=== PATIENT | female | born 1955 | race Caucasian/White ===

== ENCOUNTER → 2021-02-15 | Outpatient (CLI) | payer BC, MEDICARE ==
--- NOTE | 2021-02-15 17:19 | RAD ---
EXAM: CT Head without IV contrast CLINICAL HISTORY: Reason: PT STATES SHE BLACKED OUT FOR 3 DAYS / Spl. Instructions: / History: COMPARISON: None. TECHNIQUE: Routine CT of the head without contrast. PQRS compliance statement - One or more of the following individualized dose reduction techniques wer e utilized for this study: 1. Automated exposure control 2. Adjustment of the mA and/or kV according to patient size 3. Use of iterative reconstruction technique FINDINGS: There is no evidence of hemorrhage, mass or extra-axial fluid collection. Johnson-white differentiation is maintained with no evidence of edema. There is no mass effect or shift of the intracranial structures. The ventricles, basilar cisterns and cortical sulci are normal in size and configuration for the yoni ents stated age. The cerebellum and brainstem are unremarkable. The calvarium demonstrates no evidence of fracture or focal lesion. Partial opacification left sphenoid sinus. Otherwise there is normal aeration of the visualized paran chong sinuses and mastoid air cells. The visualized portions of the orbits are normal. IMPRESSION: No evidence for acute intracranial process. Left sphenoid sinus disease. Electronically signed by: Chris Funk MD (02/15/2021 5:17 PM) [id number]
== END ==
LOC: CT 12:43
PROVIDERS: ATTEND Family Medicine
DX: S01.552A Open bite of oral cavity, initial encounter (principal); R41.3 Other amnesia; X58.XXXA Exposure to other specified factors, initial encounter; Y93.89 Activity, other specified; Y92.89 Other specified places as the place of occurrence of the external cause; Y99.8 Other external cause status
CPT/HCPCS: 70450

== ENCOUNTER → 2021-02-25 | Outpatient (CLI) | payer BC, MEDICARE ==
--- NOTE | 2021-02-26 08:30 | RAD ---
EXAMINATION: US ABDOMEN OR LOWER BACK LIMITED INDICATION: 65 years, Female, elevated liver function test. COMPARISON: None TECHNIQUE: Grayscale, color Doppler and limited spectral Doppler images of the right upper quadrant w ere obtained. FINDINGS: LIVER: SIZE (LENGTH): 13 cm. ECHOGENICITY: Normal. PARENCHYMA: Homogeneous echotexture. No discrete focal lesion. INTRAHEPATIC BILE DUCTS: Nondilated. PORTAL VEIN: Patent with normal hepatopedal flow. GALLBLADDER: GALLBLADDER WALL THICKNESS: 1.1 mm. MORPHOLOGY: Normal morphology. No pericholecystic free fluid. LUMEN: Normal. COMMON BILE DUCT DIAMETER: 1 mm. RIGHT KIDNEY: MEASURES: 10.6 cm in length. MORPHOLOGY/PARENCHYMA: Normal corticomedullary differentiation with no shadowing calculus or discrete masses. COLLECTING SYSTEM: No hydronephrosis. PANCREAS: Not well-visualized. OTHER: RETROPERITONEUM, INFERIOR VENA CAVA: Normal caliber. AORTA: Normal caliber, measures up to 2.3 cm in diameter. FLUID:No free fluid. IMPRESSION: Unremarkable right upper abdominal ultrasound. Electronically signed by: Alcira Burnett MD (02/26/2021 8:28 AM) [facility]
== END ==
LOC: US 11:03
PROVIDERS: ATTEND Family Medicine
DX: R79.89 Other specified abnormal findings of blood chemistry (principal)
CPT/HCPCS: 76705